=== PATIENT | female | born 1995 | race Caucasian/White ===

== ENCOUNTER 2017-10-20 10:30 | Day surgery (SDC) | payer BC ==
[2017-10-20] MEDS ORDERED: Ondansetron 4 MG/2 ML SDV IVPUSH ONE ×2 (11:30→13:22)
[2017-10-20] MEDS ORDERED: Sodium Chloride 0.9% 10 ML Syringe FLUSH PRN (11:30)
--- NOTE | 2017-10-20 11:34 | EDM.PDOC ---
ED HPI GENERAL MEDICAL PROBLEM - General Chief Complaint: Abdominal Pain Stated Complaint: RIGHT SIDE PAIN/NAUSEA/DIZZINESS Time Seen by Provider: 10/20/17 11:05 Source of Information: Reports: Patient History Limitations: Reports: No Limitations - History of Present Illness INITIAL COMMENTS - FREE TEXT/NARRATIVE: Patient is a 21-year-old female who is 15 weeks 2 days presents the ED complaining of right upper quadrant plan that radiates in the right flank and back. Pain is sharp and throbbing. Pain comes and goes and waxes and wanes in intensity. This started on Wednesday. Pain over the past few days has persisted in getting worse. She has some nausea with episodes of emesis with no diarrhea present. She is mildly dizzy with ambulation. With patient's had a poor appetite. She has no increase in acid reflux. Pain does not worsen with eating. She does have a history kidney stones and states the pain she is currently experiencing is completely different. Patient's Mother had her gallbladder removed while at the the patient same age. She does have intermittent diarrhea and constipation which is not unusual. There's been no blood present. Been no fever, chills, chest pain, shows breath, abnormal vaginal discharge, vaginal bleeding, or any additional complaints. 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 Right Abdominal Pain Score (Numeric/FACES): 7 - Related Data Allergies Allergy/AdvReac Type Severity Reaction Status Date / Time hydrocodone Allergy Other Verified 10/20/17 10:41 [From Lorcet (hydrocodone)] fresh fruits Allergy Swelling Uncoded 10/20/17 10:41 Home Meds: Home Meds Ondansetron HCl [Zofran] 8 mg PO Q6HR PRN 10/20/17 [History] Pnv No.95/Ferrous Fum/Folic AC [ Multivitamin Tablet] 1 tab PO DAILY [History] Past Medical History - Past Surgical History GI Surgical History: Reports: Appendectomy Social & Family History - Family History Family Medical History: Noncontributory - Tobacco Use Smoking Status *Q: Never Smoker - Caffeine Use Caffeine Use: Reports: Soda - Recreational Drug Use Recreational Drug Use: No ED ROS GENERAL - Review of Systems Review Of Systems: See Below Constitutional: Reports: Malaise, Fatigue, Decreased Appetite. Denies: Fever, Chills HEENT: Reports: No Symptoms Respiratory: Reports: No Symptoms Cardiovascular: Reports: No Symptoms GI/Abdominal: Reports: Abdominal Pain (ruq), Constipation, Diarrhea, Decreased Appetite, Nausea, Vomiting. Denies: Black Stool, Bloody Stool, Difficulty Swallowing, Distension, Flatus, Hematemesis, Hematochezia, Melena : Reports: No Symptoms Musculoskeletal: Reports: Back Pain (right flank) Skin: Reports: No Symptoms Neurological: Reports: Dizziness (Intermittent) Psychiatric: Reports: No Symptoms ED EXAM, GI/ABD - Physical Exam Exam: See Below Exam Limited By: No Limitations General Appearance: Alert, WD/WN, Mild Distress Eyes: Bilateral: Normal Appearance Ears: Hearing Grossly Normal Nose: Normal Inspection Throat/Mouth: Normal Voice, No Airway Compromise Neck: Normal Inspection, Supple Respiratory/Chest: No Respiratory Distress, Lungs Clear, Normal Breath Sounds, Chest Non-Tender Cardiovascular: Normal Peripheral Pulses, Regular Rate, Rhythm GI/Abdominal Exam: Normal Bowel Sounds, Soft, No Organomegaly, No Distention, Tender (RUQ, positive dahl sign. ) Back Exam: Normal Inspection, CVA Tenderness (R). No: CVA Tenderness (L) Extremities: Normal Inspection, Normal Range of Motion, Non-Tender Neurological: Alert, Oriented, CN II-XII Intact, Normal Cognition, No Motor/ Sensory Deficits Psychiatric: Normal Affect, Normal Mood Skin Exam: Warm, Dry, Intact, Normal Color Course - Vital Signs Last Recorded V/S: Last Vital Signs Temp 98.1 F 10/20/17 19:18 Pulse 89 10/20/17 22:12 Resp 18 10/20/17 19:00 BP 100/67 10/20/17 22:12 Pulse Ox 99 10/20/17 22:12 - Orders/Labs/Meds Orders: Active Orders 24 hr Category Date Time Status Admission Status [Patient Status] [ADT] Routine ADT 10/20/17 18:38 Active Communication Order [RC] ROUTINE Care 10/20/17 15:30 Active Notify Provider [RC] ASDIRECTED Care 10/20/17 17:20 Active Oxygen Therapy [RC] PRN Care 10/20/17 15:26 Active Pulse Oximetry [RC] ASDIRECTED Care 10/20/17 17:20 Active VTE/DVT Education [RC] PER UNIT ROUTINE Care 10/20/17 15:26 Active Vital Signs [RC] Q4HR Care 10/20/17 15:26 Active Regular Diet [DIET] Diet 10/21/17 Breakfast Active Acetaminophen/oxyCODONE [Percocet 325-5 MG] Med 10/20/17 18:38 Active 1 - 2 tab PO Q4H PRN HYDROmorphone [Dilaudid] Med 10/20/17 15:26 Active 0.5 mg IVPUSH Q2H PRN Ondansetron [Zofran] Med 10/20/17 15:26 Active 4 mg IV Q4H PRN Phenylephrine [Chriss-Synephrine] 1 mg Med 10/20/17 17:30 Active Sodium Chloride 0.9% [Normal Saline] 10 ml IV TITRATE Sodium Chloride 0.9% [Normal Saline] 1,000 ml Med 10/20/17 11:30 Active IV ASDIRECTED Sodium Chloride 0.9% [Saline Flush] Med 10/20/17 11:30 Active 10 ml FLUSH ASDIRECTED PRN diphenhydrAMINE [Benadryl] Med 10/20/17 21:35 Active 25 mg IVPUSH Q6H PRN ePHEDrine [ePHEDrine Sulfate] Med 10/20/17 17:20 Active 5 mg IVPUSH ASDIRECTED PRN fentaNYL [Sublimaze] Med 10/20/17 17:20 Active 50 mcg IVPUSH Q5M PRN Peripheral IV Insertion Adult [OM.PC] Routine Oth 10/20/17 11:30 Ordered Schedule Procedure [COMM] Stat Oth 10/20/17 15:37 Ordered Sequential Compression Device [OM.PC] Per Unit Routine Oth 10/20/17 15:27 Ordered Resuscitation Status Routine Resus Stat 10/20/17 15:26 Ordered Medication Orders Diphenhydramine HCl (Benadryl) 25 mg IVPUSH Q6H PRN PRN Reason: Itching Last Admin: 10/20/17 22:11 Dose: 25 mg Ephedrine Sulfate (Ephedrine Sulfate) 5 mg IVPUSH ASDIRECTED PRN PRN Reason: Hypotension Fentanyl (Sublimaze) 50 mcg IVPUSH Q5M PRN PRN Reason: Pain Hydromorphone HCl (Dilaudid) 0.5 mg IVPUSH Q2H PRN PRN Reason: Pain (severe 7-10) Last Admin: 10/20/17 16:15 Dose: 0.5 mg Sodium Chloride (Normal Saline) 1,000 mls @ 100 mls/hr IV ASDIRECTED KAMALJIT Last Admin: 10/20/17 22:13 Dose: 250 mls/hr Infusion: 10/20/17 15:38 Dose: 250 mls/hr Admin: 10/20/17 11:38 Dose: 250 mls/hr Phenylephrine HCl 1 mg/ Sodium (Chloride) 10.1 mls @ 1 mls/sec IV TITRATE KAMALJIT; Protocol Ondansetron HCl (Zofran) 4 mg IV Q4H PRN PRN Reason: Nausea/Vomiting Last Admin: 10/20/17 20:04 Dose: 4 mg Oxycodone/Acetaminophen (Percocet 325-5 Mg) 1 - 2 tab PO Q4H PRN PRN Reason: Pain Last Admin: 10/20/17 22:12 Dose: 1 tab Admin: 10/20/17 20:05 Dose: 1 tab Sodium Chloride (Saline Flush) 10 ml FLUSH ASDIRECTED PRN PRN Reason: Keep Vein Open Last Admin: 10/20/17 11:39 Dose: 10 ml Labs: Laboratory Tests 10/20/17 10/20/17 10/20/17 Range/Units 11:30 11:30 11:30 WBC 10.66 H (3.98-10.04) K/mm3 RBC 4.99 (3.98-5.22) M/mm3 Hgb 14.3 (11.2-15.7) gm/L Hct 41.5 (34.1-44.9) % MCV 83.2 (79.4-94.8) fl MCH 28.7 (25.6-32.2) pg MCHC 34.5 (32.2-35.5) g/dl RDW Std Deviation 40.1 (36.4-46.3) fL Plt Count 179 L (182-369) K/mm3 MPV 12.9 H (9.4-12.3) fl Neutrophils % (Manual) 69 H (40-60) % Band Neutrophils % 0 (0-10) % Lymphocytes % (Manual) 28 (20-40) % Atypical Lymphs % 0 % Monocytes % (Manual) 2 (2-10) % Eosinophils % (Manual) 0 L (0.7-5.8) % Basophils % (Manual) 1 (0.1-1.2) Platelet Estimate Adequate RBC Morph Comment Normal Sodium 137 (136-145) mEq/L Potassium 3.7 (3.5-5.1) mEq/L Chloride 103 (98-107) mEq/L Carbon Dioxide 23 (21-32) mEq/L Anion Gap 14.7 (5-15) BUN 6 L (7-18) mg/dL Creatinine 0.6 (0.55-1.02) mg/dL Est Cr Clr Drug Dosing 111.92 mL/min Estimated GFR (MDRD) > 60 (>60) mL/min BUN/Creatinine Ratio 10.0 L (14-18) Glucose 79 (74-106) mg/dL Calcium 9.2 (8.5-10.1) mg/dL Total Bilirubin 0.3 (0.2-1.0) mg/dL AST 17 (15-37) U/L ALT 14 (14-59) U/L Alkaline Phosphatase 98 (46-116) U/L C-Reactive Protein 2.7 H* (<1.0) mg/dL Total Protein 7.8 (6.4-8.2) g/dl Albumin 3.4 (3.4-5.0) g/dl Globulin 4.4 gm/dL Albumin/Globulin Ratio 0.8 L (1-2) HCG, Quant 13167.0 mIU/mL Urine Color Yellow (Yellow) Urine Appearance Clear (Clear) Urine pH 7.0 (5.0-8.0) Ur Specific [place] 1.020 (1.005-1.030) Urine Protein Trace H (Negative) Urine Glucose (UA) Negative (Negative) Urine Ketones 2+ H (Negative) Urine Occult Blood Negative (Negative) Urine Nitrite Negative (Negative) Urine Bilirubin Negative (Negative) Urine Urobilinogen 0.2 (0.2-1.0) Ur Leukocyte Esterase Negative (Negative) Urine RBC 0-5 (0-5) /hpf Urine WBC 0-5 (0-5) /hpf Ur Epithelial Cells 5-10 H (0-5) /hpf Urine Bacteria Few (FEW) /hpf Urine Mucus Few (FEW) /hpf Meds: Medications Generic Name Dose Route Start Last Admin Trade Name Freq PRN Reason Stop Dose Admin Diphenhydramine HCl 25 mg 10/20/17 21:35 10/20/17 22:11 Benadryl IVPUSH 25 mg Q6H PRN Administration Itching Ephedrine Sulfate 5 mg 10/20/17 17:20 Ephedrine Sulfate IVPUSH ASDIRECTED PRN Hypotension Fentanyl 50 mcg 10/20/17 17:20 Sublimaze IVPUSH Q5M PRN Pain Hydromorphone HCl 0.5 mg 10/20/17 15:26 10/20/17 16:15 Dilaudid IVPUSH 0.5 mg Q2H PRN Administration Pain (severe 7-10) Sodium Chloride 1,000 mls @ 100 mls/hr 10/20/17 11:30 10/20/17 22:13 Normal Saline IV 250 mls/hr ASDIRECTED KAMALJIT Administration Phenylephrine HCl 1 mg/ Sodium 10.1 mls @ 1 mls/sec 10/20/17 17:30 Chloride IV TITRATE KAMALJIT Protocol Ondansetron HCl 4 mg 10/20/17 15:26 10/20/17 20:04 Zofran IV 4 mg Q4H PRN Administration Nausea/Vomiting Oxycodone/Acetaminophen 1 - 2 tab 10/20/17 18:38 10/20/17 22:12 Percocet 325-5 Mg PO 1 tab Q4H PRN Administration Pain Sodium Chloride 10 ml 10/20/17 11:30 10/20/17 11:39 Saline Flush FLUSH 10 ml ASDIRECTED PRN Administration Keep Vein Open Discontinued Medications Generic Name Dose Route Start Last Admin Trade Name Freq PRN Reason Stop Dose Admin Bupivacaine HCl Confirm 10/20/17 16:30 Marcaine 0.25% Administered 10/20/17 16:31 Dose 30 ml .ROUTE .STK-MED ONE Bupivacaine HCl Confirm 10/20/17 16:33 10/20/17 17:19 Marcaine 0.5% Administered 10/20/17 16:34 23 ml Dose Administration 30 ml .ROUTE .STK-MED ONE Diphenhydramine HCl Confirm 10/20/17 16:27 Benadryl Administered 10/20/17 16:28 Dose 50 mg .ROUTE .STK-MED ONE Fentanyl 50 mcg 10/20/17 12:16 10/20/17 12:24 Sublimaze IVPUSH 10/20/17 12:17 50 mcg ONETIME ONE Administration Fentanyl Confirm 10/20/17 16:27 Sublimaze Administered 10/20/17 16:28 Dose 250 mcg .ROUTE .STK-MED ONE Glycopyrrolate Confirm 10/20/17 17:37 Administered 10/20/17 17:38 Dose 1 mg .ROUTE .STK-MED ONE Hydromorphone HCl 0.5 mg 10/20/17 13:22 10/20/17 13:55 Dilaudid IVPUSH 10/20/17 13:23 0.5 mg ONETIME ONE Administration Hydromorphone HCl 0.5 mg 10/20/17 17:21 Dilaudid IVPUSH ONETIME PRN Pain Ampicillin Sodium/Sulbactam 100 mls @ 200 mls/hr 10/20/17 15:45 10/20/17 19: 53 Sodium 3 gm/ Sodium Chloride IV 10/20/17 16:14 Not Given ONETIME ONE Lidocaine HCl Confirm 10/20/17 16:27 Xylocaine-Mpf 1% Administered 10/20/17 16:28 Dose 6 mls @ as directed .ROUTE .STK-MED ONE Lactated Ringer's Confirm 10/20/17 16:27 Ringers, Lactated Administered 10/20/17 16:28 Dose 2,000 mls @ as directed .ROUTE .STK-MED ONE Iopamidol Confirm 10/20/17 16:30 Isovue-300 (61%) Administered 10/20/17 16:31 Dose 50 ml .ROUTE .STK-MED ONE Lidocaine/Epinephrine Confirm 10/20/17 16:30 Xylocaine 1% With Epinephrine 1:100,000 Administered 10/20/17 16:31 Dose 20 ml .ROUTE .STK-MED ONE Neostigmine Methylsulfate Confirm 10/20/17 17:37 Neostigmine Administered 10/20/17 17:38 Dose 5 mg .ROUTE .STK-MED ONE Ondansetron HCl 4 mg 10/20/17 11:30 10/20/17 11:38 Zofran IVPUSH 10/20/17 11:31 4 mg ONETIME ONE Administration Ondansetron HCl 4 mg 10/20/17 13:22 10/20/17 13:52 Zofran IVPUSH 10/20/17 13:23 4 mg ONETIME ONE Administration Phenylephrine HCl Confirm 10/20/17 17:07 Chriss-Synephrine Administered 10/20/17 17:08 Dose 10 mg .ROUTE .STK-MED ONE Phenylephrine HCl Confirm 10/20/17 17:07 Phenylephrine In Ns 100 Mcg/Ml Administered 10/20/17 17:08 Dose 1 mg .ROUTE .STK-MED ONE Propofol Confirm 10/20/17 16:27 Diprivan 20 Ml Administered 10/20/17 16:28 Dose 200 mg .ROUTE .STK-MED ONE Rocuronium [place] Confirm 10/20/17 16:27 Zemuron Administered 10/20/17 16:28 Dose 50 mg .ROUTE .STK-MED ONE Sodium Chloride Confirm 10/20/17 16:30 Normal Saline Administered 10/20/17 16:31 Dose 50 ml .ROUTE .STK-MED ONE Succinylcholine Chloride Confirm 10/20/17 16:27 Succinylcholine In Ns Pf Administered 10/20/17 16:28 Dose 100 mg .ROUTE .STK-MED ONE - Re-Assessments/Exams Free Text/Narrative Re-Assessment/Exam: IV established with normal saline 250 mL an hour and Zofran 4 mg IVP. Initial labs and studies include: CBC, chem 14, CRP, hCG, UA, and ultrasound of the right upper quadrant. 1215 per nursing staff patient complaining of pain. Ordered fentanyl 50 mcq IVP. 10/20/17 13:23 per nursing staff patient having increasing pain to the right upper quadrant and also developed some nausea. Ordered Dilaudid 0.5 mg IV and also Zofran 4 mg IV. Ultrasound abdomen impression: Pancreas and liver are not ultimately seen. Probably small 7 mm hemangioma within the right lobe of the liver. Several gallstones without gallbladder wall thickening or biliary duct dilatation. 10/20/17 13:35 Discussed results of labs and ultrasound study with the patient. She's complaining of 6 out of 10 discomfort although her blood pressure is normotensive and her heart rate is in the 60s. She is holding her cell phone as we speak. She does not appear to be in acute distress. Discussed admission and/ or discharge home with followup with General Surgeon. I will speak with Dr. Astudillo airport operations specialist General Surgeon. 10/20/17 13:54 Dr. Astudillo will see the patient in the E.D. 10/20/17 15:[address] Astudillo he does believe patient would benefit from surgery. Unclear if this would occur today or tomorrow. It away patient will be admitted. They will be performing the surgery today. Departure - Departure Time of Disposition: 15:11 Disposition: DC/Tfer to [facility] Access [facility] Condition: Good Clinical Impression: Biliary colic, Choledocholithiasis with acute cholecystitis - Discharge Information - My Orders Last 24 Hours: My Active Orders 10/20/17 11:30 Sodium Chloride 0.9% [Normal Saline] 1,000 ml IV ASDIRECTED Sodium Chloride 0.9% [Saline Flush] 10 ml FLUSH ASDIRECTED PRN Peripheral IV Insertion Adult [OM.PC] Routine - Assessment/Plan Last 24 Hours: My Active Orders 10/20/17 11:30 Sodium Chloride 0.9% [Normal Saline] 1,000 ml IV ASDIRECTED Sodium Chloride 0.9% [Saline Flush] 10 ml FLUSH ASDIRECTED PRN Peripheral IV Insertion Adult [OM.PC] Routine
[2017-10-20] MEDS: Sodium Chloride 0.9% 1,000 ML IV SCH ×2 (11:38→22:13)
[2017-10-20] MEDS ORDERED: fentaNYL 100 MCG/2 ML SDV IVPUSH ONE (12:16)
--- NOTE | 2017-10-20 13:10 | US ---
Limited abdominal ultrasound: Multiple real-time images of the upper right abdomen were obtained. Liver not optimally seen due to bowel gas. No discrete abnormality is otherwise seen within the liver. Small hyperechoic finding is seen within the right lobe of the liver close to the gallbladder measuring 7 mm which most likely represents a small hemangioma. Several gallstones are seen within the gallbladder but no gallbladder wall thickening or biliary duct dilatation is seen. Pancreas is poorly seen, no discrete abnormality in the area of the pancreas is noted. Inferior vena cava is patent. Portal vein shows normal hepatopedal flow. Impression: 1. Pancreas and liver are not optimally seen. Probable small 7 mm hemangioma within the right lobe of the liver. 2. Several gallstones without gallbladder wall thickening or biliary duct dilatation. Diagnostic code #3
[2017-10-20] MEDS ORDERED: HYDROmorphone 0.5 MG/0.5 ML SYRINGE IVPUSH ONE (13:22)
--- NOTE | 2017-10-20 14:41 | PCM.PREANE ---
Preanesthetic Assessment - Anesthesia/Transfusion/Family Hx Anesthesia History: Prior Anesthesia Without Reaction Family History of Anesthesia Reaction: No Transfusion History: Prior Transfusion Without Reaction Intubation History: Unknown - Review of Systems General: No Symptoms, Fatigue, Malaise, Chills Pulmonary: No Symptoms Cardiovascular: No Symptoms, Lightheadedness (intermittent) Gastrointestinal: No Symptoms (GERD), Abdominal Pain (RUQ pain), Constipation, Decreased Appetite, Diarrhea, Nausea, Vomiting Neurological: No Symptoms, Headache, Seizure (seizure noted post wisdom teeth extraction) Other: Reports: None ( currently 15 weeks and 2 days ), Easy Bleeding, Easy Bruising, Depression, Anxiety - Physical Assessment NPO Status Date: 10/19/17 NPO Status Time: 20:00 Pulse: 86 O2 Sat by Pulse Oximetry: 100 Respiratory Rate: 18 Blood Pressure: 103/70 Temperature: 37.0 C Vital Signs: Last Vital Signs Temp 37.0 C 10/20/17 10:44 Pulse 86 10/20/17 10:44 Resp 18 10/20/17 10:44 BP 103/70 10/20/17 10:44 Pulse Ox 100 10/20/17 10:44 Height: 1.55 m Weight: 68.039 kg ASA Class: 2E Mental Status: Alert & Oriented x3 Airway Class: Mallampati = 2 Dentition: Reports: Normal Dentition, Caries Thyro-Mental Finger Breadths: 3 Mouth Opening Finger Breadths: 3 ROM/Head Extension: Full Lungs: Clear to Auscultation, Normal Respiratory Effort Cardiovascular: Regular Rate, Regular Rhythm, No Murmurs - Lab Values: Laboratory Last Values WBC 10.66 K/mm3 (3.98-10.04) H 10/20/17 11:30 RBC 4.99 M/mm3 (3.98-5.22) 10/20/17 11:30 Hgb 14.3 gm/L (11.2-15.7) 10/20/17 11:30 Hct 41.5 % (34.1-44.9) 10/20/17 11:30 MCV 83.2 fl (79.4-94.8) 10/20/17 11:30 MCH 28.7 pg (25.6-32.2) 10/20/17 11:30 MCHC 34.5 g/dl (32.2-35.5) 10/20/17 11:30 RDW Std Deviation 40.1 fL (36.4-46.3) 10/20/17 11:30 Plt Count 179 K/mm3 (182-369) L 10/20/17 11:30 MPV 12.9 fl (9.4-12.3) H 10/20/17 11:30 Neutrophils % (Manual) 69 % (40-60) H 10/20/17 11:30 Band Neutrophils % 0 % (0-10) 10/20/17 11:30 Lymphocytes % (Manual) 28 % (20-40) 10/20/17 11:30 Atypical Lymphs % 0 % 10/20/17 11:30 Monocytes % (Manual) 2 % (2-10) 10/20/17 11:30 Eosinophils % (Manual) 0 % (0.7-5.8) L 10/20/17 11:30 Basophils % (Manual) 1 (0.1-1.2) 10/20/17 11:30 Platelet Estimate Adequate 10/20/17 11:30 RBC Morph Comment Normal 10/20/17 11:30 Sodium 137 mEq/L (136-145) 10/20/17 11:30 Potassium 3.7 mEq/L (3.5-5.1) 10/20/17 11:30 Chloride 103 mEq/L (98-107) 10/20/17 11:30 Carbon Dioxide 23 mEq/L (21-32) 10/20/17 11:30 Anion Gap 14.7 (5-15) 10/20/17 11:30 BUN 6 mg/dL (7-18) L 10/20/17 11:30 Creatinine 0.6 mg/dL (0.55-1.02) 10/20/17 11:30 Est Cr Clr Drug Dosing 111.92 mL/min 10/20/17 11:30 Estimated GFR (MDRD) > 60 mL/min (>60) 10/20/17 11:30 BUN/Creatinine Ratio 10.0 (14-18) L 10/20/17 11:30 Glucose 79 mg/dL (74-106) 10/20/17 11:30 Calcium 9.2 mg/dL (8.5-10.1) 10/20/17 11:30 Total Bilirubin 0.3 mg/dL (0.2-1.0) 10/20/17 11:30 AST 17 U/L (15-37) 10/20/17 11:30 ALT 14 U/L (14-59) 10/20/17 11:30 Alkaline Phosphatase 98 U/L (46-116) 10/20/17 11:30 C-Reactive Protein 2.7 mg/dL (<1.0) H* 10/20/17 11:30 Total Protein 7.8 g/dl (6.4-8.2) 10/20/17 11:30 Albumin 3.4 g/dl (3.4-5.0) 10/20/17 11:30 Globulin 4.4 gm/dL 10/20/17 11:30 Albumin/Globulin Ratio 0.8 (1-2) L 10/20/17 11:30 HCG, Quant 47773.0 mIU/mL 10/20/17 11:30 Urine Color Yellow (Yellow) 10/20/17 11:30 Urine Appearance Clear (Clear) 10/20/17 11:30 Urine pH 7.0 (5.0-8.0) 10/20/17 11:30 Ur Specific [place] 1.020 (1.005-1.030) 10/20/17 11:30 Urine Protein Trace (Negative) H 10/20/17 11:30 Urine Glucose (UA) Negative (Negative) 10/20/17 11:30 Urine Ketones 2+ (Negative) H 10/20/17 11:30 Urine Occult Blood Negative (Negative) 10/20/17 11:30 Urine Nitrite Negative (Negative) 10/20/17 11:30 Urine Bilirubin Negative (Negative) 10/20/17 11:30 Urine Urobilinogen 0.2 (0.2-1.0) 10/20/17 11:30 Ur Leukocyte Esterase Negative (Negative) 10/20/17 11:30 Urine RBC 0-5 /hpf (0-5) 10/20/17 11:30 Urine WBC 0-5 /hpf (0-5) 10/20/17 11:30 Ur Epithelial Cells 5-10 /hpf (0-5) H 10/20/17 11:30 Urine Bacteria Few /hpf (FEW) 10/20/17 11:30 Urine Mucus Few /hpf (FEW) 10/20/17 11:30 Above labs reviewed and noted and within acceptable ranges to proceed with scheduled procedure. - Allergies Allergies/Adverse Reactions: Allergies Allergy/AdvReac Type Severity Reaction Status Date / Time hydrocodone Allergy Other Verified 10/20/17 10:41 [From Lorcet (hydrocodone)] fresh fruits Allergy Swelling Uncoded 10/20/17 10:41 - Anesthesia Plan Pre-Op Medication Ordered: None - Acknowledgements Anesthesia Type Planned: General Anesthesia Pt an Appropriate Candidate for the Planned Anesthesia: Yes Alternatives and Risks of Anesthesia Discussed w Pt/Guardian: Yes Pt/Guardian Understands and Agrees with Anesthesia Plan: Yes PreAnesthesia Questionnaire - Past Surgical History GI Surgical History: Reports: Appendectomy - SUBSTANCE USE Smoking Status *Q: Never Smoker Recreational Drug Use History: No - HOME MEDS Home Medications: Home Meds Ondansetron HCl [Zofran] 8 mg PO Q6HR PRN 10/20/17 [History] Pnv No.95/Ferrous Fum/Folic AC [ Multivitamin Tablet] 1 tab PO DAILY [History] - CURRENT (IN HOUSE) MEDS Current Meds: Current Medications Sodium Chloride (Normal Saline) 1,000 mls @ 250 mls/hr IV ASDIRECTED KAMALJIT Last Admin: 10/20/17 11:38 Dose: 250 mls/hr Sodium Chloride (Saline Flush) 10 ml FLUSH ASDIRECTED PRN PRN Reason: Keep Vein Open Last Admin: 10/20/17 11:39 Dose: 10 ml Discontinued Medications Fentanyl (Sublimaze) 50 mcg IVPUSH ONETIME ONE Stop: 10/20/17 12:17 Last Admin: 10/20/17 12:24 Dose: 50 mcg Hydromorphone HCl (Dilaudid) 0.5 mg IVPUSH ONETIME ONE Stop: 10/20/17 13:23 Last Admin: 10/20/17 13:55 Dose: 0.5 mg Ondansetron HCl (Zofran) 4 mg IVPUSH ONETIME ONE Stop: 10/20/17 11:31 Last Admin: 10/20/17 11:38 Dose: 4 mg Ondansetron HCl (Zofran) 4 mg IVPUSH ONETIME ONE Stop: 10/20/17 13:23 Last Admin: 10/20/17 13:52 Dose: 4 mg
[2017-10-20] MEDS ORDERED: HYDROmorphone 0.5 MG/0.5 ML SYRINGE IVPUSH PRN ×2 (15:26→17:21)
--- NOTE | 2017-10-20 15:37 | PCM.HP ---
H&P History of Present Illness - General Date of Service: 10/20/17 Admit Problem/Dx: Admission Diagnosis/Problem Admission Diagnosis/Problem Acute cholecystitis Source of Information: Patient History Limitations: Reports: No Limitations - History of Present Illness Initial Comments - Free Text/Narative: 21 yo female, currently 15 weeks , presents with RUQ abdominal pain, which started 3 days ago. Pain has been persistent, waxing and waning, increasing to 9/10 at times. Currently, pain 3/10 in the ER after receiving IV narcotics. Pain radiates to the RIGHT back. Pain has been associated with multiple episodes of emesis. She had pain intermittent for the past month, but it was temporary and self-resolving. This episode has been persistent, without relief. She also notes intermittent constipation and diarrhea in the past few months since . Denies yellowing of eyes or skin, acholic stools, or tea -colored urine. No subjective fevers, but has had chills. She had kidney stones in the past, but this pain is different in quality and location. In the ER, the patient received IV Dilaudid, Zofran, and IV fluids. Right Abdominal Pain Score (Numeric/FACES): 7 - Related Data Allergies/Adverse Reactions: Allergies Allergy/AdvReac Type Severity Reaction Status Date / Time hydrocodone Allergy Other Verified 10/20/17 10:41 [From Lorcet (hydrocodone)] fresh fruits Allergy Swelling Uncoded 10/20/17 10:41 Home Medications: Home Meds Ondansetron HCl [Zofran] 8 mg PO Q6HR PRN 10/20/17 [History] Pnv No.95/Ferrous Fum/Folic AC [ Multivitamin Tablet] 1 tab PO DAILY [History] Past Medical History Musculoskeletal History: Reports: Other (See Below) ("SCIATICA") Psychiatric History: Reports: Anxiety, Depression - Past Surgical History GI Surgical History: Reports: Appendectomy (LAPAROSCOPIC APPENDECTOMY (AGE 16).) Other Surgical History Comment: PRIOR WISDOM TEETH REMOVAL Social & Family History - Family History GI: Reports: Cholelithiasis (MOTHER HAD GALLSTONE DISEASE) - Tobacco Use Smoking Status *Q: Never Smoker - Caffeine Use Caffeine Use: Reports: Soda - Alcohol Use Alcohol Use History: No - Recreational Drug Use Recreational Drug Use: No - Living Situation & Occupation Living situation: Reports: , with Family (PATIENT IS , LIVES WITH AND TWO CHILDREN (AGE 4 AND 1). YOUNGEST SON IS SCHEDULED FOR HYPOSPADIA SURGERY NEXT WEEK.) H&P Review of Systems - Review of Systems: Review Of Systems: ROS reveals no pertinent complaints other than HPI. Exam - Exam Exam: See Below - Vital Signs Vital Signs: Last Vital Signs Temp 37.0 C 10/20/17 14:43 Pulse 86 10/20/17 14:43 Resp 18 10/20/17 14:43 BP 103/70 10/20/17 14:43 Pulse Ox 100 10/20/17 14:43 Weight: 68.039 kg - Exam General: Alert, Oriented, Cooperative HEENT: Conjunctiva Clear, Mucosa Moist & [place]. No: Scleral Icterus Neck: Supple. No: Lymphadenopathy Lungs: Clear to Auscultation, Normal Respiratory Effort Cardiovascular: Regular Rate, Regular Rhythm, Normal S1, Normal S2. No: Systolic Murmur GI/Abdominal Exam: Soft, No Distention, Tender (TENDER TO THE RUQ. MIRANDA'S SIGN NEGATIVE.) Extremities: Normal Inspection, No Pedal Edema Skin: Warm, Dry, Intact Neuro Extensive - Mental Status: Alert, Normal Mood/Affect, Normal Cognition, Memory Intact Psychiatric: Alert, Normal Affect, Normal Mood - Patient Data Lab Results Last 24 hrs: Laboratory Results - last 24 hr 10/20/17 10/20/17 10/20/17 Range/Units 11:30 11:30 11:30 WBC 10.66 H (3.98-10.04) K/mm3 RBC 4.99 (3.98-5.22) M/mm3 Hgb 14.3 (11.2-15.7) gm/L Hct 41.5 (34.1-44.9) % MCV 83.2 (79.4-94.8) fl MCH 28.7 (25.6-32.2) pg MCHC 34.5 (32.2-35.5) g/dl RDW Std Deviation 40.1 (36.4-46.3) fL Plt Count 179 L (182-369) K/mm3 MPV 12.9 H (9.4-12.3) fl Neutrophils % (Manual) 69 H (40-60) % Band Neutrophils % 0 (0-10) % Lymphocytes % (Manual) 28 (20-40) % Atypical Lymphs % 0 % Monocytes % (Manual) 2 (2-10) % Eosinophils % (Manual) 0 L (0.7-5.8) % Basophils % (Manual) 1 (0.1-1.2) Platelet Estimate Adequate RBC Morph Comment Normal Sodium 137 (136-145) mEq/L Potassium 3.7 (3.5-5.1) mEq/L Chloride 103 (98-107) mEq/L Carbon Dioxide 23 (21-32) mEq/L Anion Gap 14.7 (5-15) BUN 6 L (7-18) mg/dL Creatinine 0.6 (0.55-1.02) mg/dL Est Cr Clr Drug Dosing 111.92 mL/min Estimated GFR (MDRD) > 60 (>60) mL/min BUN/Creatinine Ratio 10.0 L (14-18) Glucose 79 (74-106) mg/dL Calcium 9.2 (8.5-10.1) mg/dL Total Bilirubin 0.3 (0.2-1.0) mg/dL AST 17 (15-37) U/L ALT 14 (14-59) U/L Alkaline Phosphatase 98 (46-116) U/L C-Reactive Protein 2.7 H* (<1.0) mg/dL Total Protein 7.8 (6.4-8.2) g/dl Albumin 3.4 (3.4-5.0) g/dl Globulin 4.4 gm/dL Albumin/Globulin Ratio 0.8 L (1-2) HCG, Quant 71300.0 mIU/mL Urine Color Yellow (Yellow) Urine Appearance Clear (Clear) Urine pH 7.0 (5.0-8.0) Ur Specific [place] 1.020 (1.005-1.030) Urine Protein Trace H (Negative) Urine Glucose (UA) Negative (Negative) Urine Ketones 2+ H (Negative) Urine Occult Blood Negative (Negative) Urine Nitrite Negative (Negative) Urine Bilirubin Negative (Negative) Urine Urobilinogen 0.2 (0.2-1.0) Ur Leukocyte Esterase Negative (Negative) Urine RBC 0-5 (0-5) /hpf Urine WBC 0-5 (0-5) /hpf Ur Epithelial Cells 5-10 H (0-5) /hpf Urine Bacteria Few (FEW) /hpf Urine Mucus Few (FEW) /hpf Result Diagrams: 10/20/17 11:30 10/20/17 11:30 Imaging Impressions Last 24 hrs: RUQ ultrasound: (per radiology report) Several gallstones without gallbladder wall thickening or biliary ductal dilatation. Small hyperechoic finding is seen within the right lobe of the liver close to the gallbladder measuring 7 mm which most likely represents a small hemangioma. Problem List Initiated/Reviewed/Updated: Yes Orders Last 24hrs: Active Orders 24 hr Category Date Time Status Patient Status [ADT] Routine ADT 10/20/17 15:26 Ordered Communication Order [RC] ROUTINE Care 10/20/17 15:30 Ordered Oxygen Therapy [RC] PRN Care 10/20/17 15:26 Ordered Peripheral IV Care [RC] . DIRECTED Care 10/20/17 11:30 Active VTE/DVT Education [RC] PER UNIT ROUTINE Care 10/20/17 15:26 Ordered Vital Signs [RC] Q4H Care 10/20/17 15:26 Ordered Nothing per Oral After Midnight Diet [DIET] Diet 10/20/17 Breakfast Ordered HYDROmorphone [Dilaudid] Med 10/20/17 15:26 Ordered 0.5 mg IVPUSH Q2H PRN Ondansetron [Zofran] Med 10/20/17 15:26 Ordered 4 mg IV Q4H PRN Sodium Chloride 0.9% [Normal Saline] 1,000 ml Med 10/20/17 11:30 Active IV ASDIRECTED Sodium Chloride 0.9% [Saline Flush] Med 10/20/17 11:30 Active 10 ml FLUSH ASDIRECTED PRN Peripheral IV Insertion Adult [OM.PC] Routine Oth 10/20/17 11:30 Ordered Sequential Compression Device [OM.PC] Per Unit Routine Oth 10/20/17 15:27 Ordered Resuscitation Status Routine Resus Stat 10/20/17 15:26 Ordered Medication Orders Hydromorphone HCl (Dilaudid) 0.5 mg IVPUSH Q2H PRN PRN Reason: Pain (severe 7-10) Sodium Chloride (Normal Saline) 1,000 mls @ 100 mls/hr IV ASDIRECTED KAMALJIT Last Admin: 10/20/17 11:38 Dose: 250 mls/hr Ondansetron HCl (Zofran) 4 mg IV Q4H PRN PRN Reason: Nausea/Vomiting Sodium Chloride (Saline Flush) 10 ml FLUSH ASDIRECTED PRN PRN Reason: Keep Vein Open Last Admin: 10/20/17 11:39 Dose: 10 ml Assessment/Plan Comment:: 21 yo female, 15+2 weeks EGA, prior lap appendectomy, presents with acute calculous cholecystitis. Normal LFT's and CBD 3 mm. Patient has been NPO since yesterday night. - The patient was consented for laparoscopic cholecystectomy, possible open, possible IOC. Indications, risks, benefits, and alternatives were discussed with the patient in detail. Explained to the patient the best time to perform surgery would be during the 2nd trimester. Risks include bleeding, infection, damage to surrounding structures, including the common bile duct, need for additional procedures, loss, DVT/PE, ME, CVA, and . - Will plan for surgery tonight. - Admit, NPO. - Unasyn 3 gm IV aviation technical systems specialist to the OR. - Doppler tones before and after surgery. Phillip Pena M.D., F.A.C.S. General Surgery Pager: [phone]
[2017-10-20] MEDS ORDERED: Ampicillin/Sulbactam Na 3 GM in Sodium Chloride 0.9% 100 ML IV ONE (15:45)
[2017-10-20] MEDS ORDERED: Succinylcholine/Normal Saline 100 MG/5 ML Syringe ONE (16:27)
[2017-10-20] MEDS ORDERED: Lactated Ringers 2,000 ML ONE (16:27)
[2017-10-20] MEDS ORDERED: Propofol 200 MG/20 ML SDV ONE (16:27)
[2017-10-20] MEDS ORDERED: fentaNYL 250 MCG/5 ML SDV ONE (16:27)
[2017-10-20] MEDS ORDERED: diphenhydrAMINE 50 MG/ML SDV ONE (16:27)
[2017-10-20] MEDS ORDERED: Lidocaine 1% 6 ML ONE (16:27)
[2017-10-20] MEDS ORDERED: Rocuronium 50 MG/5 ML Vial ONE (16:27)
[2017-10-20] MEDS ORDERED: Lidocaine 1% with EPINEPHrine 1:100,000 20 ML MDV ONE (16:30)
[2017-10-20] MEDS ORDERED: Iopamidol 612 MG/ML 50 ML SDV ONE (16:30)
[2017-10-20] MEDS ORDERED: Sodium Chloride 0.9% 50 ML SDV ONE (16:30)
[2017-10-20] MEDS ORDERED: Bupivacaine 0.25% 30 ML SDV ONE (16:30)
[2017-10-20] MEDS ORDERED: Bupivacaine 0.5% 30 ML SDV ONE (16:33)
[2017-10-20] MEDS ORDERED: Phenylephrine/Normal Saline 100 MCG/ML 10 ML Syringe ONE (17:07)
[2017-10-20] MEDS ORDERED: Phenylephrine 1% 10 MG/ML SDV ONE (17:07)
[2017-10-20] MEDS ORDERED: ePHEDrine 50 MG/ML SDV IVPUSH PRN (17:20)
[2017-10-20] MEDS ORDERED: fentaNYL 100 MCG/2 ML SDV IVPUSH PRN (17:20)
[2017-10-20] MEDS ORDERED: Phenylephrine 1 MG in Sodium Chloride 0.9% 10 ML IV SCH (17:30)
[2017-10-20] MEDS ORDERED: Neostigmine Methylsulfate 1 MG/ML 5 ML Syringe ONE (17:37)
--- NOTE | 2017-10-20 18:31 | PCM.POSTAN ---
POST ANESTHESIA ASSESSMENT - MENTAL STATUS Mental Status: Alert - VITAL SIGNS Pulse Rate: 110 SaO2: 97 Resp Rate: 18 Blood Pressure: 95/59 Temperature: 36.6 C - RESPIRATORY Respiratory Status: Respiratory Rate WNL, Airway Patent, O2 Saturation Stable, Supplemental Oxygen - CARDIOVASCULAR CV Status: Pulse Rate WNL, Blood Pressure Stable - GASTROINTESTINAL GI Status: No Symptoms - POST OP HYDRATION Hydration Status: Adequate & Stable
--- NOTE | 2017-10-20 18:43 | PCM.OPNOTE ---
- General Post-Op/Procedure Note Date of Surgery/Procedure: 10/20/17 Operative Procedure(s): laparoscopic cholecystectomy Findings: gallstones within the gallbladder Pre Op Diagnosis: acute calculous cholecystitis Post-Op Diagnosis: acute calculous cholecystitis Anesthesia Technique: General ET Tube Primary Surgeon: Phillip Pena Anesthesia Provider: Marycarmen Goldman Pathology: gallbladder Fluid Replacement, Intraop: 1,300 (crystalloid) EBL in mLs: 5 Complications: None Condition: Good Free Text/Narrative:: Indications for surgery: The patient is a 21 yo female, in her 2nd trimester of (14+2 weeks EGA), who presents with a 3 days of RUQ abdominal pain, with tenderness on exam, and an ultrasound demonstrating gallstones. She was diagnosed with acute calculous cholecystitis, and was consented for laparoscopic cholecystectomy, possible open, possible intraoperative cholangiogram. Indications, risks, and benefits were discussed with the patient and her parents in detail. doppler tones were normal pre-operatively (140' s). Description of procedure: After surgical consent was verified, the patient was brought to the main OR. Anesthesia performed general endotracheal intubation without complications. Appropriate padding and straps were placed. SCD's were on and functioning. Perioperative anitbiotic (Unasyn IV) was administered. A surgical time-out was performed to verify proper patient, proper site, and proper procedure. Due to the patient's prior laparoscopic appendectomy surgery (with a periumbilical surgical scar), the decision was made to enter the abdomen through the LUQ at Carrizales's point. Local anesthetic (1:1 solution of 1% lidocaine with epinephrine and 0.5% bupivacaine) was injected at Carrizales's point. A 5 mm incision was made, through which a Veress needle was inserted, and the abdomen was insuffulated to 15 mmHg. A 5 mm trocar was inserted using the Optiview technique. A laparoscope was inserted, and there was no evidence of intra-abdominal injury from trocar placement. Additional trocars were placed : a 5 mm trocar at the infraumbilical region, and two 5-mm trocars in the RUQ. There were no adhesions at the umbilical site, and the gravid uterus was visualized. The gallbladder was identified. The fundus of the gallbladder was grasped and elevated over the liver. The gallbladder infundibulum was then grasped and lateral traction was applied, allowing exposure of Calot's triangle. Dissection around Calot's triangle led to exposure of the critical view, with two structures entering the gallbladder. The lower 1/3 of the gallbladder was dissected off the liver bed, with the liver visible behind. The cystic artery was doubly clipped, as well as the cystic duct, and both were divided, leaving two clips on the "stay" side. The gallbaldder was dissected off the gallbladder fossa, placed in an Endocatch bag, and removed through the umbilical trocar site, which had been up-sized to a 12 mm trocar. Hemostasis was ensured. The 12 mm trocar site was then closed with an 0-Vicryl suture on a transfascial suture passer. All trocars were removed under direct visualization, and the abdomen was allowed to desufflate. Additional local anesthetic was injected at all trocar sites. All skin sites were closed with 4-0 Monocryl and covered with Dermabond. The patient tolerated the procedure well, was extubated, and transported to the PACU in stable condition. doppler tones in the PACU were normal (140's). At the end of the case, all needle, instrument, and gauze counts were correct. I was presented and scrubbed for the entirety of the case. Phillip Pena M.D., F.A.C.S. General Surgery Pager: [phone]
[2017-10-20] MEDS: Ondansetron 4 MG/2 ML SDV IV PRN (20:04)
[2017-10-20] MEDS: Acetaminophen/oxyCODONE 325-5 MG Tab PO PRN ×2 (20:05→22:12)
[2017-10-20] MEDS ORDERED: diphenhydrAMINE 50 MG/ML SDV IVPUSH PRN (21:35)
[2017-10-21] MEDS: Acetaminophen/oxyCODONE 325-5 MG Tab PO PRN ×5 (00:54→10:08)
[2017-10-21] MEDS: Ondansetron 4 MG/2 ML SDV IV PRN ×2 (00:56→07:45)
[2017-10-21] MEDS ORDERED: HYDROmorphone 0.5 MG/0.5 ML Syringe IVPUSH PRN (07:30)
--- NOTE | 2017-10-21 08:28 | PCM48HPAN ---
Post Anesthesia Note - EVALUATION WITHIN 48HRS OF ANESTHETIC Vital Signs in Normal Range: Yes Patient Participated in Evaluation: Yes Respiratory Function Stable: Yes Airway Patent: Yes Cardiovascular Function Stable: Yes Hydration Status Stable: Yes Pain Control Satisfactory: Yes Nausea and Vomiting Control Satisfactory: Yes Mental Status Recovered: Yes (feels bettter) Pulse Rate: 79 Resp Rate: 16 Temperature: 98.1 F Blood Pressure: 104/59
--- NOTE | 2017-10-21 10:14 | PCM.PN ---
- General Info Date of Service: 10/21/17 Admission Dx/Problem (Free Text): Admission Diagnosis/Problem Admission Diagnosis/Problem Acute cholecystitis Subjective Update: No acute events overnight. Patient's pain controlled with Percocet PRN. She has been using 1 tab every 2 hours. Denies nausea/emesis, although she had requested Zofran this morning. Tolerated dinner and breakfast this morning ( regular diet). Ambulating and voiding spontaneously. - Patient Data Vitals - Most Recent: Last Vital Signs Temp 36.7 C 10/21/17 08:28 Pulse 79 10/21/17 08:28 Resp 16 10/21/17 08:28 BP 104/59 L 10/21/17 08:28 Pulse Ox 97 10/21/17 07:49 Weight - Most Recent: 68.039 kg I&O - Last 24 Hours: Intake & Output 10/20/17 10/21/17 10/21/17 22:59 06:59 14:59 Intake Total 1450 Balance 1450 Lab Results Last 24 Hours: Laboratory Results - last 24 hr 10/20/17 10/20/17 10/20/17 Range/Units 11:30 11:30 11:30 WBC 10.66 H (3.98-10.04) K/mm3 RBC 4.99 (3.98-5.22) M/mm3 Hgb 14.3 (11.2-15.7) gm/L Hct 41.5 (34.1-44.9) % MCV 83.2 (79.4-94.8) fl MCH 28.7 (25.6-32.2) pg MCHC 34.5 (32.2-35.5) g/dl RDW Std Deviation 40.1 (36.4-46.3) fL Plt Count 179 L (182-369) K/mm3 MPV 12.9 H (9.4-12.3) fl Neutrophils % (Manual) 69 H (40-60) % Band Neutrophils % 0 (0-10) % Lymphocytes % (Manual) 28 (20-40) % Atypical Lymphs % 0 % Monocytes % (Manual) 2 (2-10) % Eosinophils % (Manual) 0 L (0.7-5.8) % Basophils % (Manual) 1 (0.1-1.2) Platelet Estimate Adequate RBC Morph Comment Normal Sodium 137 (136-145) mEq/L Potassium 3.7 (3.5-5.1) mEq/L Chloride 103 (98-107) mEq/L Carbon Dioxide 23 (21-32) mEq/L Anion Gap 14.7 (5-15) BUN 6 L (7-18) mg/dL Creatinine 0.6 (0.55-1.02) mg/dL Est Cr Clr Drug Dosing 111.92 mL/min Estimated GFR (MDRD) > 60 (>60) mL/min BUN/Creatinine Ratio 10.0 L (14-18) Glucose 79 (74-106) mg/dL Calcium 9.2 (8.5-10.1) mg/dL Total Bilirubin 0.3 (0.2-1.0) mg/dL AST 17 (15-37) U/L ALT 14 (14-59) U/L Alkaline Phosphatase 98 (46-116) U/L C-Reactive Protein 2.7 H* (<1.0) mg/dL Total Protein 7.8 (6.4-8.2) g/dl Albumin 3.4 (3.4-5.0) g/dl Globulin 4.4 gm/dL Albumin/Globulin Ratio 0.8 L (1-2) HCG, Quant 20842.0 mIU/mL Urine Color Yellow (Yellow) Urine Appearance Clear (Clear) Urine pH 7.0 (5.0-8.0) Ur Specific [place] 1.020 (1.005-1.030) Urine Protein Trace H (Negative) Urine Glucose (UA) Negative (Negative) Urine Ketones 2+ H (Negative) Urine Occult Blood Negative (Negative) Urine Nitrite Negative (Negative) Urine Bilirubin Negative (Negative) Urine Urobilinogen 0.2 (0.2-1.0) Ur Leukocyte Esterase Negative (Negative) Urine RBC 0-5 (0-5) /hpf Urine WBC 0-5 (0-5) /hpf Ur Epithelial Cells 5-10 H (0-5) /hpf Urine Bacteria Few (FEW) /hpf Urine Mucus Few (FEW) /hpf Med Orders - Current: Current Medications Diphenhydramine HCl (Benadryl) 25 mg IVPUSH Q6H PRN PRN Reason: Itching Last Admin: 10/20/17 22:11 Dose: 25 mg Hydromorphone HCl (Dilaudid) 0.5 mg IVPUSH Q2H PRN PRN Reason: Pain (severe 7-10) Ondansetron HCl (Zofran) 4 mg IV Q4H PRN PRN Reason: Nausea/Vomiting Last Admin: 10/21/17 07:45 Dose: 4 mg Oxycodone/Acetaminophen (Percocet 325-5 Mg) 1 - 2 tab PO Q4H PRN PRN Reason: Pain Last Admin: 10/21/17 10:08 Dose: 1 tab Sodium Chloride (Saline Flush) 10 ml FLUSH ASDIRECTED PRN PRN Reason: Keep Vein Open Last Admin: 10/20/17 11:39 Dose: 10 ml Discontinued Medications Bupivacaine HCl (Marcaine 0.25%) Confirm Administered Dose 30 ml .ROUTE .STK- MED ONE Stop: 10/20/17 16:31 Bupivacaine HCl (Marcaine 0.5%) Confirm Administered Dose 30 ml .ROUTE .STK-MED ONE Stop: 10/20/17 16:34 Last Admin: 10/20/17 17:19 Dose: 23 ml Diphenhydramine HCl (Benadryl) Confirm Administered Dose 50 mg .ROUTE .STK-MED ONE Stop: 10/20/17 16:28 Ephedrine Sulfate (Ephedrine Sulfate) 5 mg IVPUSH ASDIRECTED PRN PRN Reason: Hypotension Fentanyl (Sublimaze) 50 mcg IVPUSH ONETIME ONE Stop: 10/20/17 12:17 Last Admin: 10/20/17 12:24 Dose: 50 mcg Fentanyl (Sublimaze) Confirm Administered Dose 250 mcg .ROUTE .STK-MED ONE Stop: 10/20/17 16:28 Fentanyl (Sublimaze) 50 mcg IVPUSH Q5M PRN PRN Reason: Pain Glycopyrrolate () Confirm Administered Dose 1 mg .ROUTE .STK-MED ONE Stop: 10/20/17 17:38 Hydromorphone HCl (Dilaudid) 0.5 mg IVPUSH ONETIME ONE Stop: 10/20/17 13:23 Last Admin: 10/20/17 13:55 Dose: 0.5 mg Hydromorphone HCl (Dilaudid) 0.5 mg IVPUSH Q2H PRN PRN Reason: Pain (severe 7-10) Last Admin: 08/22/18 16:15 Dose: 0.5 mg Hydromorphone HCl (Dilaudid) 0.5 mg IVPUSH ONETIME PRN PRN Reason: Pain Sodium Chloride (Normal Saline) 1,000 mls @ 100 mls/hr IV ASDIRECTED [facility] Last Admin: 10/20/17 22:13 Dose: 250 mls/hr Ampicillin Sodium/Sulbactam (Sodium 3 gm/ Sodium Chloride) 100 mls @ 200 mls/ hr IV ONETIME ONE Stop: 10/20/17 16:14 Last Admin: 10/20/17 19:53 Dose: Not Given Lidocaine HCl (Xylocaine-Mpf 1%) Confirm Administered Dose 6 mls @ as directed .ROUTE .STK-MED ONE Stop: 10/20/17 16:28 Lactated Ringer's (Ringers, Lactated) Confirm Administered Dose 2,000 mls @ as directed .ROUTE .STK-MED ONE Stop: 10/20/17 16:28 Phenylephrine HCl 1 mg/ Sodium (Chloride) 10.1 mls @ 1 mls/sec IV TITRATE KAMALJIT; Protocol Iopamidol (Isovue-300 (61%)) Confirm Administered Dose 50 ml .ROUTE .STK-MED ONE Stop: 10/20/17 16:31 Lidocaine/Epinephrine (Xylocaine 1% With Epinephrine 1:100,000) Confirm Administered Dose 20 ml .ROUTE .STK-MED ONE Stop: 10/20/17 16:31 Neostigmine Methylsulfate (Neostigmine) Confirm Administered Dose 5 mg .ROUTE .STK-MED ONE Stop: 10/20/17 17:38 Ondansetron HCl (Zofran) 4 mg IVPUSH ONETIME ONE Stop: 10/20/17 11:31 Last Admin: 10/20/17 11:38 Dose: 4 mg Ondansetron HCl (Zofran) 4 mg IVPUSH ONETIME ONE Stop: 10/20/17 13:23 Last Admin: 10/20/17 13:52 Dose: 4 mg Phenylephrine HCl (Chriss-Synephrine) Confirm Administered Dose 10 mg .ROUTE .STK- MED ONE Stop: 10/20/17 17:08 Phenylephrine HCl (Phenylephrine In Ns 100 Mcg/Ml) Confirm Administered Dose 1 mg .ROUTE .STK-MED ONE Stop: 10/20/17 17:08 Propofol (Diprivan 20 Ml) Confirm Administered Dose 200 mg .ROUTE .STK-MED ONE Stop: 10/20/17 16:28 Rocuronium Hawkins (Zemuron) Confirm Administered Dose 50 mg .ROUTE .STK-MED ONE Stop: 10/20/17 16:28 Sodium Chloride (Normal Saline) Confirm Administered Dose 50 ml .ROUTE .STK-MED ONE Stop: 10/20/17 16:31 Succinylcholine Chloride (Succinylcholine In Ns Pf) Confirm Administered Dose 100 mg .ROUTE .STK-MED ONE Stop: 10/20/17 16:28 - Exam General: Alert, Oriented, Cooperative GI/Abdominal Exam: Soft, No Distention, Tender (appropriately tender at surgical sites), Other (lap incisions C/D/I with Dermabond) - Problem List Review Problem List Initiated/Reviewed/Updated: Yes - My Orders Last 24 Hours: My Active Orders 10/20/17 15:26 Oxygen Therapy [RC] PRN VTE/DVT Education [RC] PER UNIT ROUTINE Vital Signs [RC] Q4HR Ondansetron [Zofran] 4 mg IV Q4H PRN Resuscitation Status Routine 10/20/17 15:27 Sequential Compression Device [OM.PC] Per Unit Routine 10/20/17 15:30 Communication Order [RC] ROUTINE 10/20/17 15:37 Schedule Procedure [COMM] Stat 10/20/17 18:38 Admission Status [Patient Status] [ADT] Routine Acetaminophen/oxyCODONE [Percocet 325-5 MG] 1 - 2 tab PO Q4H PRN 10/20/17 21:35 diphenhydrAMINE [Benadryl] 25 mg IVPUSH Q6H PRN 10/21/17 07:30 HYDROmorphone [Dilaudid] 0.5 mg IVPUSH Q2H PRN 10/21/17 Breakfast Regular Diet [DIET] - Plan Plan:: 21 yo female, 15+3 weeks EGA, POD#1 s/p lap cholecystectomy, doing well. FHT has been in the 130-140's post-op. - Ok for discharge home today. - Post-op care instructions given. - F/U in 1-2 weeks Phillip Pena M.D., F.A.C.S. General Surgery Pager: [phone]
== END 2017-10-21 12:22 | disposition home or self-care (01) ==
LOC: JD.ED 10:30 → JD.SDS 15:48 → JD.MS 15:48 → JD.SDS 10-21 12:22
PROVIDERS: ATTEND Student in an Organized Health Care Education/Training Program
DX: K80.10 Calculus of gallbladder with chronic cholecystitis without obstruction (principal); Z88.5 Allergy status to narcotic agent; Z91.018 Allergy to other foods
CPT/HCPCS: 36415; 47562; 76705; 80053; 81001; 84702; 85007; 85027; 86140; 96361; 96374; 96375; 96376; 99285; A9270; J0330; J1170; J1200; J2370; J2405; J2704; J2710; J3010; J3490; J7040; J7050; J7120; 00790; J2001; Q9967

== ENCOUNTER 2019-06-26 15:26 | Emergency (ER) | payer BC ==
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
[2019-06-26] MEDS ORDERED: Alum Hydrox/Mag Hydrox/Simeth 30 ML, Lidocaine 2% 15 ML PO ONE ×2 (16:35)
[2019-06-26] MEDS ORDERED: Sucralfate 1 GM Tab PO ONE (17:59)
[2019-06-26] MEDS ORDERED: Acetaminophen/oxyCODONE 325-5 MG Tab PO ONE (18:44)
[2019-06-26] MEDS ORDERED: Pantoprazole 40 MG Tab.CR PO ONE (18:47)
[2019-06-26] MEDS ORDERED: Pantoprazole 40 MG Tab.CR ONE (18:55)
[2019-06-27] MEDS ORDERED: Pantoprazole 40 MG Tab.CR PO ONE (18:47)
== END 2019-06-26 20:35 | disposition home or self-care (01) ==
LOC: JD.ED 15:26
DX: R10.13 Epigastric pain (principal); R10.12 Left upper quadrant pain; K21.9 Gastro-esophageal reflux disease without esophagitis; Z88.5 Allergy status to narcotic agent; Z91.048 Other nonmedicinal substance allergy status; Z79.899 Other long term (current) drug therapy; Z90.49 Acquired absence of other specified parts of digestive tract; Z98.51 Tubal ligation status
CPT/HCPCS: 36415; 80053; 83690; 85025; 99284; A9270; 99283

== ENCOUNTER 2020-03-06 12:07 | Day surgery (SDC) | payer BC ==
[2020-03-06] MEDS ORDERED: Sodium Chloride 0.9% 10 ML Syringe FLUSH PRN (12:28)
[2020-03-06] MEDS ORDERED: Ondansetron 4 MG/2 ML SDV IVPUSH ONE (12:28)
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
--- NOTE | 2020-03-06 13:07 | CR ---
Chest: 2 views of the chest were obtained. Comparison: No previous chest imaging is available. Heart size and mediastinum are normal. Lungs are clear with no acute parenchymal change. No discrete bony abnormality is appreciated. Surgical clips are noted from prior cholecystectomy. Impression: 1. Nothing acute is seen on frontal chest x-ray. Diagnostic code #2
[2020-03-06 13:23] LABS: CORONAVIRUS COVID-19 NAA NEGATIVE (NEGATIVE)
[2020-03-06] MEDS ORDERED: HYDROmorphone 0.5 MG/0.5 ML Syringe IVPUSH ONE (13:35)
[2020-03-06] MEDS ORDERED: Glucagon,Human Recombinant 1 MG Vial IVPUSH ONE (13:39)
[2020-03-06] MEDS ORDERED: Lactated Ringers 1,000 ML IV SCH (14:34)
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
[2020-03-06] MEDS ORDERED: Succinylcholine/Sod PF 100 MG/5 ML SYRINGE IV ONE (16:21)
[2020-03-06] MEDS ORDERED: fentaNYL 100 MCG/2 ML SDV ONE (16:21)
[2020-03-06] MEDS ORDERED: Propofol 200 MG/20 ML SDV ONE (16:21)
[2020-03-06] MEDS ORDERED: Lidocaine 1% 6 ML ONE (16:22)
[2020-03-06] MEDS ORDERED: Midazolam 1 MG/ML 2 ML SDV ONE (16:23)
[2020-03-06] MEDS ORDERED: Ondansetron 4 MG/2 ML SDV ONE (16:38)
[2020-03-06] MEDS ORDERED: Dexamethasone 4 MG/ML SDV ONE (16:40)
--- NOTE | 2020-03-06 16:53 | PCM.OPNOTE ---
- General Post-Op/Procedure Note Date of Surgery/Procedure: 03/06/20 Operative Procedure(s): EGD Findings: 1. gastritis 2. Duodenitis Pre Op Diagnosis: Esophageal food obstruction Post-Op Diagnosis: Gastritis and duodenitis Anesthesia Technique: General ET Tube Primary Surgeon: Anh Ramirez Anesthesia Provider: Osmani Scruggs Pathology: 1. Duodenal biopsies 2. Gastric antrum biopsies Fluid Replacement, Intraop: 800 Output, Urine Amount: 0 EBL in mLs: 0 Complications: none apparent Condition: Good
--- NOTE | 2020-03-06 17:00 | PCM.PRNOTE ---
- Free Text/Narrative Note: Operative Report Date of procedure: March 06, 2020 Preoperative diagnosis: Esophageal food obstruction Postoperative diagnosis: Gastritis and duodenitis Surgeon: Anh Ramirez M.D. Procedure: EGD Anesthesia: General ET [employer] Software Developer: Osmani Scruggs CRNA IV fluids: 800mL Estimated blood loss: 0 mL Specimens: 1. Gastric antrum biopsies 2. Duodenal biopsies Indication: The patient is a 24-year-old lady who presented after reportedly swallowing a chicken bone. The patient's main complaint was globus and odynophagia. The patient was consented for an EGD with intervention. Risk of bleeding and perforation were discussed. The patient's consent was obtained. Description of the procedure: The patient was taken to the endoscopy suite and placed on hemodynamic monitoring. The nurse licensed physical therapy assistant induced General anesthesia and was intubated without difficulty. A bite block was placed. The p atient was positioned in the left lateral decubitus position. A timeout was performed. The endoscope was gently placed into the mouth to the back of the pharynx and introduced into the esophagus. The scope was gently advanced under direct visualization down to the level of the lower esophageal sphincter. The stomach was then entered. Normal rugal folds were noted. The scope was advanced into t he antrum. We noted residual food matter in the stomach. The pylorus was then entered and the first and second portion of the duodenum was inspected. We did note some erythema and mucosal friability consistent with duodenitis. Biopsies were taken with a cold biopsy forceps. There were no ulcerations in the duodenum. The scope was withdrawn to the antrum and biopsies were taken in the antrum using cold biopsy forceps. The tissue in the distal stomach had a striped erythematous pattern with edematous nodularity in the antrum stent with gastritis. The scope was then retroflexed in the cardia and fundus were investigated. There is no evidence of any hiatal hernia. No other abnormalities were noted. The scope was then withdrawn while inspecting the esophagus. There was no esophagitis. There was no evidence of any mucosal injury. The procedure was terminated. The patient tolerated the procedure well without any evidence of complications. Anh Ramirez MD General Surgery
--- NOTE | 2020-03-06 17:21 | PCM.POSTAN ---
POST ANESTHESIA ASSESSMENT - MENTAL STATUS Mental Status: Somnolent - VITAL SIGNS Vital Signs: Last Vital Signs Temp 97.7 F 03/06/20 17:15 Pulse 90 03/06/20 17:15 Resp 18 03/06/20 17:15 BP 99/68 03/06/20 17:15 Pulse Ox 99 03/06/20 17:15 - RESPIRATORY Respiratory Status: Respiratory Rate WNL, Airway Patent, O2 Saturation Stable, Supplemental Oxygen - CARDIOVASCULAR CV Status: Pulse Rate WNL, Blood Pressure Stable - GASTROINTESTINAL GI Status: No Symptoms - PAIN Pain Score: 0 - POST OP HYDRATION Hydration Status: Adequate & Stable
--- NOTE | 2020-03-06 17:33 | PCM48HPAN ---
Post Anesthesia Note - EVALUATION WITHIN 48HRS OF ANESTHETIC Vital Signs in Normal Range: Yes Patient Participated in Evaluation: Yes Respiratory Function Stable: Yes Airway Patent: Yes Cardiovascular Function Stable: Yes Hydration Status Stable: Yes Pain Control Satisfactory: Yes Nausea and Vomiting Control Satisfactory: Yes Mental Status Recovered: Yes Vital Signs: Last Vital Signs Temp 97.7 F 03/06/20 17:15 Pulse 90 03/06/20 17:15 Resp 18 03/06/20 17:15 BP 99/68 03/06/20 17:15 Pulse Ox 100 03/06/20 17:20 - COMMENTS/OBSERVATIONS Free Text/Narrative:: preparing for discharge
== END 2020-03-06 18:50 | disposition home or self-care (01) ==
LOC: JD.ED 12:07 → SUPCPDRO 12:07 → JD.SDS 15:50
PROVIDERS: ATTEND Surgery
DX: K29.50 Unspecified chronic gastritis without bleeding (principal); A04.8 Other specified bacterial intestinal infections; T18.128A Food in esophagus causing other injury, initial encounter; K29.80 Duodenitis without bleeding; F41.9 Anxiety disorder, unspecified; F32.9 Major depressive disorder, single episode, unspecified; Z01.812 Encounter for preprocedural laboratory examination; Z20.822 Contact with and (suspected) exposure to COVID-19; Z88.5 Allergy status to narcotic agent; Z91.018 Allergy to other foods; Z79.899 Other long term (current) drug therapy; Z90.49 Acquired absence of other specified parts of digestive tract
CPT/HCPCS: 00731; 0240U; 36415; 71045; 71045-26; 80053; 84703; 85025; 96374; 96375; 99284; 99284-25; J0330; J1100; J1170; J1610; J2001; J2250; J2405; J2704; J3010; J7120

== ENCOUNTER 2020-07-06 10:10 | Emergency (ER) | payer BC ==
[2020-07-06] MEDS ORDERED: Sodium Chloride 0.9% 1,000 ML IV ONE (11:31)
[2020-07-06] MEDS ORDERED: Ondansetron 4 MG/2 ML SDV IVPUSH ONE (11:31)
[2020-07-06] MEDS ORDERED: HYDROmorphone 0.5 MG/0.5 ML Syringe IVPUSH ONE ×2 (11:31→15:33)
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
[2020-07-06] MEDS ORDERED: Ketorolac 30 MG/ML SDV IVPUSH ONE (12:34)
--- NOTE | 2020-07-07 09:34 | US ---
Pelvic ultrasound: Multiple real-time images were obtained transvaginally. Uterus is retroverted. Endometrial thickness is 8.2 mm. Small amount of fluid is seen within the endometrial cavity. Small amount of fluid is also noted within the pelvis. Right ovary shows no cyst or solid abnormality. Minimal hemorrhagic cyst measuring 1.5 cm within the left ovary. Impression: 1. Small amount of fluid within the endometrial cavity. 2. Small amount of fluid within the pelvis. 3. Small hemorrhagic cyst which is likely incidental. Diagnostic code #2 I agree with preliminary report from [facility] finalized on 07/06/20, 3:10 PM CDT, code 1
== END 2020-07-06 16:35 | disposition home or self-care (01) ==
LOC: JD.ED 10:10
DX: N83.202 Unspecified ovarian cyst, left side (principal); K21.9 Gastro-esophageal reflux disease without esophagitis; Z88.5 Allergy status to narcotic agent; Z91.018 Allergy to other foods; Z79.899 Other long term (current) drug therapy
CPT/HCPCS: 36415; 76830; 80053; 81003; 81025; 85025; 86140; 96374; 96375; 96376; 99284; J1170; J1885; J2405; J7030; 99283